=== PATIENT | female | born 1970 | race Caucasian/White ===

== ENCOUNTER → 2016-03-14 | Day surgery (SDC) | payer OTHER ==
[2016-03-06 10:15] VITALS: Ht 152.4 cm; Wt 54.5 kg
[~2016-03-14] VITALS: Ht 152.4 cm; Wt 54.5 kg
[~2016-03-14] MED LIST: ASCO500C3 PO; ATROPINE SULFATE 0.1 MG/ML 5ML SYR IV PRN; BIOT1CAP8 PO; DEXAMETHASONE SOD INJ 4 MG/ML VIAL ONE; EpHEDrine SULFATE INJ 50 MG/ML AMP IV PRN; FENTANYL CITRATE INJ 50 MCG/1 ML 2 ML VIAL ONE; IBUPROFEN 600 MG TAB PO PRN; KETOROLAC TROMETHAMINE 30 MG/ML VIAL IV. PRN; KETOROLAC TROMETHAMINE 30 MG/ML VIAL ONE; LACTATED RINGER'S 1000ML 1,000 ML IV SCH; LIDOCAINE HCL 2% 2 ML VIAL (20MG/ML) ONE; MIDAZOLAM HCL 1 MG/ML 2ML VIAL ONE; MISCTAB78 PO; MULT-506 PO; ONDANSETRON INJ 2 MG/ML 2 ML VIAL IV PRN; ONDANSETRON INJ 2 MG/ML 2 ML VIAL ONE; OXYC-57 PO; OXYCODONE/ACETAMINOPHEN 5-325 TAB PO PRN; PROMETHAZINE HCL INJ 12.5 MG in SODIUM CHLORIDE 0.9% 50ML 50 ML IV PRN; PROMETHAZINE HCL INJ 25 MG in SODIUM CHLORIDE 0.9% 50ML 50 ML IV PRN; PROPOFOL IV EMULSION 10 MG/ML 20 ML VIAL IV ONE; SODIUM CHLORIDE 0.9% 1000ML 1,000 ML IV SCH; VITAMIN D PO
--- NOTE | 2016-03-14 10:22 | History & Physical Bridge - [place] ---
H&P Re-Evaluation Bridge Note: I have examined the patient, reviewed the History & Physical and in the interval since the performance of the History & Physical I have noted the following changes of clinical significance: No changes noted
--- NOTE | 2016-03-14 11:00 | [facility] Operative Report ---
Operative Report Operative Date Mar 14, 2016. Pre-Operative Diagnosis Menorrhagia, Uterine Enlargement Post-Operative Diagnosis Same Procedure(s) Performed Dilatation And Curettage, Hysteroscopy, Endometrial Ablation with Novasure Surgeon Dr. Bosch [employer] Counselor Surgeon(s) None Estimated Blood Loss 10 mL Findings normal cavity Specimens A. Endometrial Curettings Drains none Anesthesia general Complication(s) None Disposition Recovery Room / PACU I attest to the content of the Intraoperative Record and any orders documented therein. Any exceptions are noted below.
--- NOTE | 2016-03-14 11:04 | Discharge Instructions ---
Discharge Instructions Admission Reason for Admission: Menorrhagia Discharge Discharge Diagnosis / Problem: menorrhagia Discharge Goals Goal(s): Routine recovery after surgery Activity Recommendations Activity Limitations: per Instructions/Follow-up section . Instructions / Follow-Up Instructions / Follow-Up ACTIVITY RECOMMENDATIONS: * Avoid tampons, douching, hot tubs, pools, and intercourse until bleeding has stopped. * May shower as usual. * No strenuous activity for 24-48 hours. After 24-48 hours, you may do anything you feel like doing (driving and sports are okay). SPECIAL CARE INSTRUCTIONS: Special Diet: * Mild nausea may occur in the immediate post-operative period. * Take clear liquids such as tea, cola or bouillon until all nausea has subsided; you may then resume your normal diet. Special Care: * Light bleeding and vaginal spotting can last from a few days to 3-4 weeks. Call your doctor if bleeding becomes heavier than the heaviest part of your period. * Check your temperature twice a day for one week. If it goes above 100.4 degrees Fahrenheit (38.0 Celsius), notify your doctor. * Call your doctor's office for an appointment for 6 weeks after your surgery. FOLLOW-UP VISIT: Call your doctor's office for an appointment for 6 weeks after your surgery. Current Hospital Diet Patient's current hospital diet: Discharge Diet Recommended Diet: Regular Diet Procedures Procedures Performed: Dilatation And Curettage, Hysteroscopy, Endometrial Ablation with Novasure Pending Studies Studies pending at discharge: no Medical Emergencies . Who to Call and When: Medical Emergencies: If at any time you feel your situation is an emergency, please call 911 immediately. . Non-Emergent Contact Non-Emergency issues call your: Primary Care Provider . . "Provider Documentation" section prepared by Mark Bosch. VTE Core Measure Inpt VTE Proph given/why not?: Treatment not indicated
[2016-03-14] MEDS: FENTANYL CITRATE INJ 50 MCG/1 ML 2 ML VIAL IV PRN ×3 (11:20→11:34)
--- NOTE | 2016-03-14 11:29 | OPERATIVE REPORT ---
DATE OF OPERATION: 03/14/2016 PREOPERATIVE DIAGNOSIS: Menorrhagia. POSTOPERATIVE DIAGNOSIS: Menorrhagia. PROCEDURE: Hysteroscopy, D\T\C, endometrial ablation with NovaSure. SURGEON: Dr. Bosch. ANESTHETIC: General. ESTIMATED BLOOD LOSS: 10 mL. FINDINGS: Normal cavity. SPECIMENS: Endometrial curettings. DRAINS: None. ANESTHETIC: General. COMPLICATIONS: None. DISPOSITION: Stable in the recovery room. OPERATION AND FINDINGS: Estefanía was given a general anesthetic, prepped and draped in dorsolithotomy position in [facility]. Bladder drained. Uterus examined and found to be anteverted, normal size. Weighted speculum placed in the vagina. The cervix grasped with single tooth tenaculum. Cervix was easily dilated starting #13 dilator progressing sequentially to a #27 dilator. On inspection with a 5 mm hysteroscope using normal saline as her base solution, I was able to visualize the cavity. There was no sign of perforation, no pathology visualized. Both tubal ostia were visualized. D\T\C performed with sharp curettage. Specimen sent as endometrial curetting. Measurements performed. The uterine sounding length 8.5 cm, fundal length 4.5 cm. NovaSure was then deployed and the width was 3.4 cm. We then performed the cavity integrity test and this was passed on the first attempt without difficulty and then we ablated the cavity. After NovaSure was completed removed the NovaSure device and reinspected with the hysteroscope. Cavity was well ablated. There was no sign of perforation. Pictures taken for documentation. Sponge and instrument counts correct. The patient sent to recovery room in stable condition. I attest to the content of the Intraoperative Record and any orders documented therein. Any exceptio ns are noted below.
[2016-03-14 11:58] VITALS: TEMP 36.5
[2016-03-14 12:37] VITALS: BP 113/74; PULSE 63; O2SAT 98
--- NOTE | 2016-03-14 12:46 | Anesthesia Progress Nt - [facility] ---
Anesthesia Post Op Note Date & Time Mar 14, 2016 at 12:45 Vital Signs Pain Intensity: 3 Vital Signs Past 12 Hours Date Time Temp Pulse Resp B/P Pulse Ox O2 Delivery O2 Flow Rate FiO2 03/14/16 12:37 63 16 113/74 98 Room Air 03/14/16 11:58 36.5 60 16 118/73 98 Room Air 03/14/16 11:49 36.6 03/14/16 11:44 66 18 03/14/16 11:44 67 18 97 03/14/16 11:43 111/73 03/14/16 11:39 63 9 03/14/16 11:39 63 9 96 03/14/16 11:38 108/77 03/14/16 11:34 62 16 03/14/16 11:34 63 16 97 03/14/16 11:33 101/68 03/14/16 11:30 Room Air 03/14/16 11:29 65 20 03/14/16 11:29 65 20 100 03/14/16 11:28 107/77 03/14/16 11:24 65 10 03/14/16 11:24 66 10 100 03/14/16 11:23 106/72 03/14/16 11:19 63 12 100 03/14/16 11:19 66 12 03/14/16 11:18 109/69 03/14/16 11:14 69 13 100 03/14/16 11:14 69 13 03/14/16 11:13 113/75 03/14/16 11:09 73 19 99 03/14/16 11:09 73 19 03/14/16 11:06 36.2 73 12 123/74 99 Diffusion Mask 6 03/14/16 09:55 36.7 63 16 109/72 97 Room Air Notes Mental Status: alert / awake / arousable, participated in evaluation Pt Amnestic to Procedure: Yes Nausea / Vomiting: adequately controlled Pain: adequately controlled Airway Patency, RR, SpO2: stable & adequate BP & HR: stable & adequate Hydration State: stable & adequate Anesthetic Complications: no major complications apparent
== END | disposition home or self-care (01) ==
LOC: X.SURG 09:36
PROVIDERS: ATTEND Obstetrics & Gynecology
DX: N92.0 Excessive and frequent menstruation with regular cycle (principal); N85.2 Hypertrophy of uterus; A69.20 Lyme disease, unspecified; M67.921 Unspecified disorder of synovium and tendon, right upper arm

== ENCOUNTER → 2016-08-28 | Outpatient (CLI) | payer OTHER ==
[~2016-08-28] MED LIST changes: -ATROPINE SULFATE 0.1 MG/ML 5ML SYR IV PRN; -DEXAMETHASONE SOD INJ 4 MG/ML VIAL ONE; -EpHEDrine SULFATE INJ 50 MG/ML AMP IV PRN; -FENTANYL CITRATE INJ 50 MCG/1 ML 2 ML VIAL ONE; -IBUPROFEN 600 MG TAB PO PRN; -KETOROLAC TROMETHAMINE 30 MG/ML VIAL IV. PRN; -KETOROLAC TROMETHAMINE 30 MG/ML VIAL ONE; -LACTATED RINGER'S 1000ML 1,000 ML IV SCH; -LIDOCAINE HCL 2% 2 ML VIAL (20MG/ML) ONE; -MIDAZOLAM HCL 1 MG/ML 2ML VIAL ONE; -ONDANSETRON INJ 2 MG/ML 2 ML VIAL IV PRN; -ONDANSETRON INJ 2 MG/ML 2 ML VIAL ONE; -OXYCODONE/ACETAMINOPHEN 5-325 TAB PO PRN; -PROMETHAZINE HCL INJ 12.5 MG in SODIUM CHLORIDE 0.9% 50ML 50 ML IV PRN; -PROMETHAZINE HCL INJ 25 MG in SODIUM CHLORIDE 0.9% 50ML 50 ML IV PRN; -PROPOFOL IV EMULSION 10 MG/ML 20 ML VIAL IV ONE; -SODIUM CHLORIDE 0.9% 1000ML 1,000 ML IV SCH
--- NOTE | 2016-08-29 09:07 | MAMMOGRAPHY REPORT ---
BILATERAL DIGITAL SCREENING MAMMOGRAM TOMOSYNTHESIS WITH CAD: 08/28/2016 CLINICAL HISTORY: Routine screening. Patient has no complaints. TECHNIQUE: Breast tomosynthesis in addition to standard 2D mammography was performed. Current study was also evaluated with a Computer Aided Detection (CAD) system. COMPARISON: Comparison is made to exams dated: 08/22/2015 mammogram, 08/17/2014 mammogram, 08/04/2013 m ammogram, 02/19/2012 mammogram - [facility], 11/22/2010 mammogram, and 04/03/2009 [facility] mogram. BREAST COMPOSITION: The tissue of both breasts is heterogeneously dense, which may obscure small mas ses. FINDINGS: No suspicious masses, calcifications, or areas of architectural distortion are noted in ei ther breast. There has been no significant interval change compared to prior exams. IMPRESSION: ACR BI-RADS CATEGORY 1: NEGATIVE There is no mammographic evidence of malignancy. A 1 year screening mammogram is recommended. The pa tient will receive written notification of the results. Approximately 10% of breast cancers are not detected with mammography. A negative mammographic report should not delay biopsy if a clinically suggestive mass is present. Kayleigh Fleming M.D. /:08/28/2016 16:24:01 [employer]or: Yaritza Giordano [facility] letter sent: Normal 1/2 BI-RADS Code: ACR BI-RADS Category 1: Negative
== END | disposition home or self-care (01) ==
LOC: C.MAMM 10:32
PROVIDERS: ATTEND Family Medicine
DX: Z12.31 Encounter for screening mammogram for malignant neoplasm of breast (principal)

== ENCOUNTER → 2016-09-26 | Outpatient (CLI) | payer OTHER ==
[2016-09-26 11:43] LABS: CHOLESTEROL/HDL RATIO 3.3
== END | disposition home or self-care (01) ==
LOC: C.LAB 10:01
PROVIDERS: ATTEND Family Medicine
DX: Z00.00 Encounter for general adult medical examination without abnormal findings (principal); Z13.220 Encounter for screening for lipoid disorders; Z13.1 Encounter for screening for diabetes mellitus

== ENCOUNTER → 2016-12-31 | Outpatient (CLI) | payer OTHER | END | disposition home or self-care (01) | LOC: C.PAPS 11:05 | PROVIDERS: ATTEND Obstetrics & Gynecology | DX: Z12.4 Encounter for screening for malignant neoplasm of cervix (principal) ==